=== PATIENT | female | born 1970 | race Caucasian/White ===

== ENCOUNTER 2016-10-25 15:31 | Emergency (ER) | payer BC, OTHER | END 2016-10-25 16:02 | disposition home or self-care (01) | DX: S61.230A Puncture wound without foreign body of right index finger without damage to nail, initial encounter (principal); W46.1XXA Contact with contaminated hypodermic needle, initial encounter; Y93.F9 Activity, other caregiving; Y92.239 Unspecified place in hospital as the place of occurrence of the external cause; Y99.0 Civilian activity done for income or pay; Z77.21 Contact with and (suspected) exposure to potentially hazardous body fluids ==

== ENCOUNTER 2016-12-19 08:49 | Outpatient (CLI) | payer OTHER ==
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
== END 2016-12-19 08:50 | disposition home or self-care (01) ==
LOC: DI 08:49
PROVIDERS: ATTEND Physician Assistant Medical
DX: M54.5 Low back pain (principal); Z98.1 Arthrodesis status
CPT/HCPCS: 72100

== ENCOUNTER 2017-05-08 21:43 | Emergency (ER) | payer OTHER ==
[2017-05-08] MEDS ORDERED: fentaNYL 100 MCG/2 ML VIAL IVP STA (21:54)
[2017-05-08] MEDS ORDERED: LIDOCAINE 2%-EPI 1:100000 20 ML MDV ONE (21:56)
[2017-05-08] MEDS ORDERED: fentaNYL 100 MCG/2 ML VIAL ONE (21:56)
[2017-05-08] MEDS ORDERED: AMOX/CLAV 875 MG/125 MG TABLET PO STA (22:39)
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
[2017-05-08] MEDS ORDERED: oxyCODONE/ACET 5/325 Prepack 4 PO STA (22:43)
[2017-05-08] MEDS ORDERED: BACITRACIN OINT TOP ONE (22:47)
[2017-05-08] MEDS ORDERED: AMOX/CLAV 875 MG/125 MG TABLET PO ONE (22:51)
[2017-05-08] MEDS ORDERED: oxyCODONE/ACET 5/325 Prepack 4 PO ONE (22:51)
[2017-05-08 22:54] VITALS: BP 126/77
== END 2017-05-08 23:00 | disposition home or self-care (01) ==
LOC: ED 21:43
DX: S71.112A Laceration without foreign body, left thigh, initial encounter (principal); W55.42XA Struck by pig, initial encounter; Y93.89 Activity, other specified; Y92.017 Garden or yard in single-family (private) house as the place of occurrence of the external cause; E03.9 Hypothyroidism, unspecified
CPT/HCPCS: 12034; 96374; 99283; A9270

== ENCOUNTER 2017-10-08 08:21 | Outpatient (CLI) | payer OTHER | END 2017-10-08 08:22 | disposition critical access hospital (66) | LOC: EMS 08:21 | PROVIDERS: ATTEND Surgery | DX: R11.0 Nausea (principal) | CPT/HCPCS: A0425; A0429 ==

== ENCOUNTER 2017-10-08 08:45 | Emergency (ER) | payer OTHER ==
--- NOTE | 2017-10-08 09:19 | ED Physician Documentation ---
PD HPI SYNCOPE - Stated complaint Stated Complaint: NEAR SYNCOPE - Chief complaint Chief Complaint: Neuro - History obtained from History obtained from: Patient - History of Present Illness Witnessed: Witnessed Timing - onset: How many hours ago, Today Associated symptoms: No: Incontinant of urine, Headache, Chest pain, Diaphoresis , Abdominal pain Contributing factors: Noxious stimulae (she had felt okay earlier in the day and yesterday. Says she noted a parculiar odor from breakroom at work. This made her nauseated and then lightheaded and nearly fainted. Sat down and then laid down, with feeling improved. Patient says the managers there called [facility] to have them evaluation for chemical leaks, etc.) Injury occurred: No: Fell, Head injury Similar symptoms before: Has not had sx before Recently seen: Not recently seen Review of Systems Constitutional: denies: Fever, Chills, Myalgias Nose: denies: Rhinorrhea / runny nose, Congestion Throat: denies: Sore throat Cardiac: denies: Chest pain / pressure, Palpitations Respiratory: denies: Dyspnea, Cough GI: reports: Nausea. 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 - Present Medications Home Medications: Ambulatory Orders Medication Instructions Recorded Confirmed Levothyroxine [Synthroid] 88 mcg PO QDAC 04/19/14 05/08/17 Amox/Clav 875/125 [Augmentin] 1 each PO Q12H #20 tablet 05/08/17 Hydrocodone/Acetaminophen 1 - 2 each PO Q6H PRN #14 tablet 05/08/17 [Hydrocodon-Acetaminophen 5-325] - Allergies Allergies/Adverse Reactions: Allergies Allergy/AdvReac Type Severity Reaction Status Date / Time acyclovir Allergy Mild Hives Verified 10/08/17 08:56 - Social History Does the pt smoke?: No Smoking Status: Never smoker Does the pt drink ETOH?: No Does the pt have substance abuse?: No - Immunizations Immunizations are current?: Yes PD ED PE NORMAL - Vitals Vital signs reviewed: Yes - General General: Alert and oriented X 3, No acute distress, Well developed/nourished - HEENT HEENT: Moist mucous membranes, Pharynx benign - Neck Neck: Supple, no meningeal sign, No adenopathy - Cardiac Cardiac: RRR, No murmur - Respiratory Respiratory: Clear bilaterally - Female Female : Deferred - Rectal Rectal: Deferred - Back Back: No CVA TTP - Derm Derm: Normal color Results - Vitals Vitals: Vital Signs - 24 hr 10/08/17 10/08/17 10/08/17 08:51 10:41 11:10 Temperature 36.2 C L Heart Rate 78 82 90 Respiratory 18 12 18 Rate Blood Pressure 119/77 116/88 H 117/88 H O2 Saturation 100 100 99 Oxygen O2 Source Room air - Labs Labs: Laboratory Tests 10/08/17 10/08/17 10/08/17 09:38 09:38 09:38 WBC 9.8 RBC 4.13 L Hgb 13.7 Hct 39.3 MCV 95.1 MCH 33.1 H MCHC 34.8 RDW 13.2 Plt Count 237 MPV 7.8 L Neut # 7.7 H Lymph # 1.3 L Bollinger # 0.7 Eos # 0.1 Baso # 0.1 Absolute Nucleated RBC 0.00 Nucleated RBC % 0.0 Sodium 136 Potassium 3.9 Chloride 105 Carbon Dioxide 23 Anion Gap 8.0 BUN 16 Creatinine 0.8 Estimated GFR (MDRD) 78 L Glucose 95 Calcium 8.8 Magnesium 2.1 Total Bilirubin 0.4 AST 19 ALT 16 Alkaline Phosphatase 47 Total Protein 7.1 Albumin 4.4 Globulin 2.7 Albumin/Globulin Ratio 1.6 Lipase 20 L TSH 0.98 Departure - Departure Disposition: 01 Home, Self Care Clinical Impression: Vasovagal syncope Condition: Stable Record reviewed to determine appropriate education?: Yes Instructions: ED Syncope Vasovagal Follow-Up: Mercedes Martino PA-C [Primary Care Provider] - Comments: This sounds likely to be a vasovagal fainting episode triggered by the unusual smell. It sounds peculiar to your system and it is good that they checked the building for noxious gases. Drink lots of fluids. Recheck if any further episodes were to happen. Forms: Activity restrictions Discharge Date/Time: 10/08/17 11:10
[2017-10-08] MEDS ORDERED: ONDANSETRON ODT 4 MG TABLET TL STA (09:30)
[2017-10-08 09:43] LABS: BASOPHILS # (AUTO) 0.1 10^3/uL (0.0-0.1); BASOPHILS % (AUTO) 0.5 %; EOSINOPHILS # (AUTO) 0.1 10^3/uL (0.0-0.7); HGB - HEMOGLOBIN 13.7 g/dL (12.0-16.0); LYMPHOCYTES # (AUTO) 1.3 10^3/uL (1.5-3.5); LYMPHOCYTES % (AUTO) 12.8 %; MEAN CORPUSCULAR HEMOGLOBIN 33.1 pg (27.0-31.0); MEAN CORPUSCULAR HGB CONC 34.8 g/dL (32.0-36.0); MEAN CORPUSCULAR VOLUME 95.1 fL (81.0-99.0); MEAN PLATELET VOLUME 7.8 fL (7.9-10.8); MONOCYTES # (AUTO) 0.7 10^3/uL (0.0-1.0); MONOCYTES % (AUTO) 6.8 %; NEUTROPHILS # (AUTO) 7.7 10^3/uL (1.5-6.6); NEUTROPHILS % (AUTO) 78.9 %; PLT - PLATELET COUNT 237 10^3/uL (130-450); RED BLOOD COUNT 4.13 10^6/uL (4.20-5.40); RED CELL DISTRIBUTION WIDTH 13.2 % (12.0-15.0); WHITE BLOOD COUNT 9.8 x10^3/uL (4.8-10.8)
[2017-10-08 09:56] LABS: ALBUMIN 4.4 g/dL (3.2-5.5); ALBUMIN/GLOBULIN RATIO 1.6 (1.0-2.2); BILIRUBIN,TOTAL 0.4 mg/dL (0.2-1.0); CALCIUM 8.8 mg/dL (8.5-10.3); CREATININE 0.8 mg/dL (0.4-1.0); MAGNESIUM 2.1 mg/dL (1.7-2.8); TOTAL PROTEIN 7.1 g/dL (6.7-8.2)
[2017-10-08 11:12] VITALS: BP 117/88
== END 2017-10-08 11:10 | disposition home or self-care (01) ==
LOC: EDUNIT# → ED 08:45
DX: R55 Syncope and collapse (principal); E03.9 Hypothyroidism, unspecified
CPT/HCPCS: 36415; 80053; 83690; 83735; 84443; 85025; 93005; 99283; Q0162

== ENCOUNTER 2018-01-01 08:00 | Outpatient (CLI) | payer OTHER ==
[2018-01-01 19:06] LABS: THYROID STIMULATING HORMONE 0.9 uIU/mL (0.34-5.60)
[2018-01-01 19:35] LABS: FOLLICLE STIMULATING HORMONE 72.64 mIU/mL
== END 2018-01-01 08:01 | disposition home or self-care (01) ==
LOC: LAB.WCP 08:00
PROVIDERS: ATTEND Family Medicine
DX: N95.1 Menopausal and female climacteric states (principal)
CPT/HCPCS: 36415; 83001; 84443

== ENCOUNTER 2018-01-30 16:04 | Outpatient (CLI) | payer OTHER ==
--- NOTE | 2018-01-31 16:28 | Mammography Report ---
Procedure Date: 01/30/2018 Accession Number: [id number] / [id number] Procedure: DWIGHT - Screening Mammo Dig Bilat CPT Code: FULL RESULT: EXAM: Screening Mammo Dig Bilat DATE: 01/30/2018 4:22 PM CLINICAL HISTORY: 47-year-old female with history of early menses presents for screening. TECHNIQUE: Bilateral CC and MLO views were obtained. COMPARISON: 05/11/2014, 01/11/2010. FINDINGS: The breasts demonstrate heterogeneously dense fibroglandular parenchyma bilaterally. The left breast contains coarse typically benign calcifications. No suspicious masses, clustered microcalcifications or architectural distortion is identified in the left breast. In the right breast approximately 3 cm from the nipple in the upper outer quadrant ice suspicious microcalcifications which are increasing when now more conspicuous due to decreasing breast density. Additional views are required. No suspicious masses or regions of architectural distortion are identified on the right. IMPRESSION: Incomplete examination RECOMMENDATION: Additional evaluation as above. BIRADS CATEGORY 0: Incomplete examination STANDARD QUALIFYING STATEMENTS: 1. This examination was reviewed with the aid of Computer-Aided Detection (CAD). 2. A negative or benign imaging report should not delay biopsy if clinically suspicious findings are present. Consider surgical consultation if warrented. More than 5% of cancers are not identified by imaging. 3. Dense breasts may obscure an underlying neoplasm.
== END 2018-01-30 16:05 | disposition home or self-care (01) ==
LOC: DI 16:04
PROVIDERS: ATTEND Family Medicine
DX: Z12.31 Encounter for screening mammogram for malignant neoplasm of breast (principal); R92.0 Mammographic microcalcification found on diagnostic imaging of breast
CPT/HCPCS: 77067

== ENCOUNTER 2018-08-12 13:51 | Outpatient (CLI) | payer BC, OTHER | END 2018-08-12 13:52 | disposition home or self-care (01) | LOC: SC 13:51 | PROVIDERS: ATTEND Internal Medicine Pulmonary Disease | DX: R06.83 Snoring (principal); E66.9 Obesity, unspecified; Z68.30 Body mass index [BMI] 30.0-30.9, adult | CPT/HCPCS: 99203; 99212 ==

== ENCOUNTER 2018-08-24 19:00 | Outpatient (CLI) | payer BC | END 2018-08-24 23:59 | disposition home or self-care (01) | LOC: SC 19:00 | PROVIDERS: ATTEND Internal Medicine Pulmonary Disease | DX: R06.83 Snoring (principal) | CPT/HCPCS: 95806 ==

== ENCOUNTER 2018-10-28 15:39 | Outpatient (CLI) | payer BC | END 2018-10-28 15:40 | disposition home or self-care (01) | LOC: SC 15:39 | PROVIDERS: ATTEND Internal Medicine Pulmonary Disease | DX: R06.83 Snoring (principal); E66.9 Obesity, unspecified | CPT/HCPCS: 99212 ==

== ENCOUNTER 2018-11-28 14:09 | Outpatient (CLI) | payer BC ==
[2018-11-28] MEDS ORDERED: GADOBUTROL 10 MMOL/10 ML VIAL ONE (14:59)
[2018-11-28] MEDS ORDERED: GADOBUTROL 10 MMOL/10 ML VIAL IVP ONE (15:43)
--- NOTE | 2018-11-29 13:52 | MRI Report ---
Reason: MIGRAINE HEADACHES Procedure Date: 11/28/2018 Accession Number: [id number] / [id number] Procedure: MRI - Brain W/WO CPT Code: FULL RESULT: EXAM: MRI BRAIN AND PITUITARY WITHOUT AND WITH CONTRAST. EXAM DATE: 11/28/2018 03:45 PM. CLINICAL HISTORY: 47-year-old female. MIGRAINE HEADACHES. COMPARISON: MRI BRAIN W TECHNIQUE: Multiplanar, multisequence T1-weighted and fluid-sensitive MR sequences of the brain and pituitary were performed. Other: None. IV Contrast: 8 ML Gadavist. FINDINGS: Brain Volume: Normal for age. Parenchyma: No masses, infarcts, or hemorrhage. Few scattered T2/FLAIR hyperintense subcortical white matter lesions within cerebral hemispheres bilaterally, new since the prior study. No abnormal enhancement, although the postcontrast images exclude the superior part of the brain parenchyma (for example series 1602 image 100).. No parenchymal foci of susceptibility artifact. Pituitary: 5.0 mm craniocaudally x 12.6 mm AP x 8.0 mm transversely. There is a 1.5 mm focus of relative hypoenhancement versus no enhancement in the posterior central gland (series 1501 image 7, series 1401 image 5). No hemorrhage, or enlargement. The superior margin is concave. The pituitary stalk is normal in thickness. The adjacent parasellar structures are within normal limits. Ventricles/Cisterns: No hydrocephalus. No abnormal extra-axial fluid collection or hemorrhage. Orbits: Symmetric and unremarkable. IAC: Symmetric and unremarkable. Vasculature: Normal signal flow void is seen in the major arterial structures at the skull base. The dural sinuses are patent and enhance normally. Sinuses: No acute sinus disease. Bones: No focal pathologic appearing marrow signal changes. Other: None. IMPRESSION: 1. No MRI evidence of acute intracranial abnormality. Specifically, no evidence of acute or subacute infarct, acute intracranial hemorrhage, mass, midline shift, or hydrocephalus. No abnormal parenchymal enhancement. 2. Few scattered T2/FLAIR hyperintense subcortical white matter lesions within cerebral hemispheres bilaterally, new since the prior study. These lesions are nonspecific, and can be seen with the entire gamut of white matter conditions, including migraine headaches and as sequela of chronic microangiopathy. 3. There is a subtle 1.5 mm focus of relative hypoenhancement versus no enhancement in the posterior central pituitary gland (series 1501 image 7, series 1401 image 5). This is nonspecific, may represent asymmetric enhancement of the gland versus a lesion such as a pituitary cystic lesion or a tiny microadenoma. RADIA
== END 2018-11-28 14:10 | disposition home or self-care (01) ==
LOC: DI 14:09
PROVIDERS: ATTEND Internal Medicine Endocrinology, Diabetes & Metabolism
DX: G43.909 Migraine, unspecified, not intractable, without status migrainosus (principal)
CPT/HCPCS: 70553; A9585

== ENCOUNTER 2018-12-10 07:22 | Outpatient (CLI) | payer BC ==
[2018-12-10 12:33] LABS: THYROID STIMULATING HORMONE 0.14 uIU/mL (0.34-5.60)
[2018-12-10 12:35] LABS: FREE T4 (FREE THYROXINE) 0.83 ng/dL (0.58-1.64)
[2018-12-10 12:40] LABS: PROLACTIN 12.95 ng/mL; TOTAL T3 1.37 ng/mL (0.87-1.78)
== END 2018-12-10 07:23 | disposition home or self-care (01) ==
LOC: LAB.F 07:22
PROVIDERS: ATTEND Internal Medicine Endocrinology, Diabetes & Metabolism
DX: D35.2 Benign neoplasm of pituitary gland (principal); E04.2 Nontoxic multinodular goiter; E03.9 Hypothyroidism, unspecified
CPT/HCPCS: 36415; 81599; 84146; 84439; 84443; 84480

== ENCOUNTER 2019-07-28 14:03 | Outpatient (CLI) | payer BC ==
[2019-07-28 17:17] LABS: BASOPHILS # (AUTO) 0.1 10^3/uL (0.0-0.1); BASOPHILS % (AUTO) 0.5 %; EOSINOPHILS # (AUTO) 0.2 10^3/uL (0.0-0.7); EOSINOPHILS % (AUTO) 1.9 %; HGB - HEMOGLOBIN 13.8 g/dL (12.0-16.0); LYMPHOCYTES # (AUTO) 2.7 10^3/uL (1.5-3.5); LYMPHOCYTES % (AUTO) 26.9 %; MEAN CORPUSCULAR HEMOGLOBIN 32.1 pg (27.0-31.0); MEAN CORPUSCULAR HGB CONC 33.7 g/dL (32.0-36.0); MEAN CORPUSCULAR VOLUME 95.1 fL (81.0-99.0); MEAN PLATELET VOLUME 10.3 fL (7.9-10.8); MONOCYTES # (AUTO) 0.8 10^3/uL (0.0-1.0); MONOCYTES % (AUTO) 7.9 %; NEUTROPHILS # (AUTO) 6.4 10^3/uL (1.5-6.6); NEUTROPHILS % (AUTO) 62.5 %; PLT - PLATELET COUNT 345 10^3/uL (130-450); RED CELL DISTRIBUTION WIDTH 12.9 % (12.0-15.0); WHITE BLOOD COUNT 10.2 x10^3/uL (4.8-10.8)
[2019-07-28 17:37] LABS: ALBUMIN 4.8 g/dL (3.2-5.5); ALBUMIN/GLOBULIN RATIO 1.5 (1.0-2.2); BILIRUBIN,TOTAL 0.7 mg/dL (0.2-1.0); CALCIUM 9.8 mg/dL (8.5-10.3); CREATININE 0.8 mg/dL (0.4-1.0); TOTAL PROTEIN 7.9 g/dL (6.7-8.2)
== END 2019-07-28 14:04 | disposition home or self-care (01) ==
LOC: LAB.S 14:03
PROVIDERS: ATTEND Physician Assistant Medical
DX: K52.9 Noninfective gastroenteritis and colitis, unspecified (principal); T50.911A Poisoning by multiple unspecified drugs, medicaments and biological substances, accidental (unintentional), initial encounter
CPT/HCPCS: 36415; 80053; 80307; 81599; 85025

== ENCOUNTER 2020-08-30 06:55 | Outpatient (CLI) | payer BC ==
[2020-08-30 15:28] LABS: THYROID STIMULATING HORMONE 3.54 uIU/mL (0.34-5.60)
[2020-08-30 15:30] LABS: FREE T4 (FREE THYROXINE) 0.83 ng/dL (0.58-1.64)
[2020-08-30 15:35] LABS: TOTAL T3 1.04 ng/mL (0.87-1.78)
== END 2020-08-30 06:56 | disposition home or self-care (01) ==
LOC: LAB.S 06:55
PROVIDERS: ATTEND Internal Medicine Endocrinology, Diabetes & Metabolism
DX: D35.2 Benign neoplasm of pituitary gland (principal); E66.9 Obesity, unspecified; E03.9 Hypothyroidism, unspecified
CPT/HCPCS: 36415; 81599; 82530; 83789; 84439; 84443; 84480

== ENCOUNTER 2020-11-12 13:57 | Outpatient (CLI) | payer BC ==
--- NOTE | 2020-11-12 14:13 | XRAY Report ---
PROCEDURE: Elbow 3 View RT INDICATIONS: RIGHT ELBOW PAIN/FALL TECHNIQUE: 3 views of the elbow were acquired. COMPARISON: None FINDINGS: Bones: No fractures or dislocations. No suspicious bony lesions. Soft tissues: No elbow joint effusion. No suspicious soft tissue calcifications. IMPRESSION: No evidence acute bony abnormality of the right elbow. Reviewed by: Ramses Posadas MD on 11/12/2020 2:12 PM PDT Approved by: Ramses Posadas MD on 11/12/2020 2:12 PM PDT Station ID: [id number]
== END 2020-11-12 23:59 | disposition home or self-care (01) ==
LOC: DI.S 13:57
PROVIDERS: ATTEND Physician Assistant
DX: M25.521 Pain in right elbow (principal)

== ENCOUNTER 2023-03-28 07:00 | Outpatient (CLI) | payer BC ==
--- NOTE | 2023-03-29 11:32 | Mammography Report ---
BILATERAL DIGITAL SCREENING MAMMOGRAM 3D/2D WITH EXAGGERATED CC: 03/28/2023 CLINICAL: Routine screening. Comparison is made to exams dated: 01/30/2018 mammogram and 05/11/2014 mammogram - [facility]. There are scattered areas of fibroglandular density in both breasts (category b / 25%-50% glandular t issue). There is a new oval asymmetry with a circumscribed margin in the right breast at 6 o'clock middle dep th. No other significant masses, calcifications, or other findings are seen in either breast. IMPRESSION: INCOMPLETE: NEEDS ADDITIONAL IMAGING EVALUATION The new oval asymmetry in the right breast is indeterminate. Additional views with possible ultrasou nd are recommended. Based on the Tyrer Cuzick model (a risk assessment model) the patients lifetime risk is 11.2% and he r 10 year risk is 2.6%. According to the ACR, ACS, and NCCN guidelines, an annual breast MRI exam mauro ng with mammogram is recommended if the patients lifetime risk is 20% or greater. This exam was interpreted at Station ID: [id number]. NOTE: For mammograms, a report in lay terms will be sent to the patient. Approximately 15% of breast malignancies will not be visualized mammographically. In the management of a palpable breast mass, a negative mammogram must not discourage biopsy of a clinically suspicious lesion. Electronically Signed By: Jorge Giles M.D. acr/:03/29/2023 08:14:33 ACR BI-RADS Category 0: Incomplete 3340F PARENCHYMAL PATTERN: (A) - The breast(s) demonstrate(s) scattered fibroglandular densities. BI-RADS CATEGORY: (0) - 0 Mammo and [place] [id number] Immediate follow-up LATERALITY: (R)
== END 2023-03-28 23:59 | disposition home or self-care (01) ==
LOC: DI.S 07:00
PROVIDERS: ATTEND Physician Assistant
DX: Z12.31 Encounter for screening mammogram for malignant neoplasm of breast (principal); R92.8 Other abnormal and inconclusive findings on diagnostic imaging of breast

== ENCOUNTER 2023-05-25 12:26 | Outpatient (CLI) | payer BC ==
--- NOTE | 2023-05-28 12:15 | Mammography Report ---
UNILATERAL RIGHT DIGITAL DIAGNOSTIC MAMMOGRAM 3D/2D: 05/25/2023 CLINICAL: Patient returns today to evaluate a focal asymmetry in the right breast. Comparison is made to exams dated: 03/28/2023 mammogram, 01/30/2018 mammogram, and 05/11/2014 mammogra m - [facility]. There are scattered areas of fibroglandular density in the right breast (category b / 25%-50% glandul ar tissue). There is a 0.7 cm oval mass with a circumscribed margin in the right breast at 7 o'clock middle depth . This is seen in additional views. No other significant masses or calcifications are seen in the breast. IMPRESSION: INCOMPLETE: NEEDS ADDITIONAL IMAGING EVALUATION The 0.7 cm oval mass in the right breast is indeterminate. An ultrasound is recommended. Based on the Tyrer Cuzick model (a risk assessment model) the patients lifetime risk is 8.3% and her 10 year risk is 1.9%. According to the ACR, ACS, and NCCN guidelines, an annual breast MRI exam ebony g with mammogram is recommended if the patients lifetime risk is 20% or greater. This exam was interpreted at Station ID: [id number]. NOTE: For mammograms, a report in lay terms will be sent to the patient. Approximately 15% of breast malignancies will not be visualized mammographically. In the management of a palpable breast mass, a negative mammogram must not discourage biopsy of a clinically suspicious lesion. Electronically Signed By: Andrey Finney M.D. lc/:05/25/2023 13:35:51 ACR BI-RADS Category 0: Incomplete 3340F PARENCHYMAL PATTERN: (A) - The breast(s) demonstrate(s) scattered fibroglandular densities. BI-RADS CATEGORY: (0) - 0 Ultrasound [id number] Immediate follow-up LATERALITY: (B)
--- NOTE | 2023-05-28 12:15 | Ultrasound Report ---
LIMITED ULTRASOUND OF RIGHT BREAST: 05/25/2023 CLINICAL: Patient returns today to evaluate a focal asymmetry in the right breast. Comparison is made to exams dated: 05/25/2023 mammogram, 03/28/2023 mammogram, 01/30/2018 mammogram, a nd 05/11/2014 mammogram - [facility]. Real-time ultrasound of the right breast 6 o'clock region was performed. Loving scale images of the re al-time examination were reviewed. There is a possible 0.8 cm x 0.4 cm x 0.8 cm oval micro cyst in the right breast at 8 o'clock middle depth. This correlates with mammography findings. IMPRESSION: PROBABLY BENIGN The possible 0.8 cm x 0.4 cm x 0.8 cm oval micro cyst in the right breast is probably benign. A follow-up ultrasound in 6 months is recommended to demonstrate stability. This exam was interpreted at Station ID: [id number]. Electronically Signed By: Andrey Finney M.D. lc/:05/25/2023 13:36:52 Ultrasound BI-RADS: 3 Probably benign BI-RADS CATEGORY: (3) - 3 Ultrasound [id number] 6 month follow-up LATERALITY: (B)
== END 2023-05-25 12:27 | disposition home or self-care (01) ==
LOC: DI 12:26
PROVIDERS: ATTEND Physician Assistant
DX: N63.13 Unspecified lump in the right breast, lower outer quadrant (principal); R92.321 Mammographic fibroglandular density, right breast

== ENCOUNTER 2023-08-13 07:00 | Outpatient (CLI) | payer BC ==
--- NOTE | 2023-08-13 18:14 | XRAY Report ---
PROCEDURE: Sacrum/Coccyx INDICATIONS: CONTUSION TO LOWER BACK AND PELVIS TECHNIQUE: 2 views of the sacrum and coccyx acquired. COMPARISON: X-ray lumbar spine 2017 FINDINGS: Bones: Mild diastases of the lower coccyx segments with cortical irregularity. Prior exams did not in clude it within the [id number].. No suspicious bony lesions. L4-5 posterior fusion. Hardware is intact without evidence of hardware fracture or periprosthetic lucency to suggest loosening. Degenera tive foraminal narrowing is present at L4-5, L5-S1. Soft tissues: Visualized bowel gas pattern is normal. No suspicious soft tissue densities. IMPRESSION: Diastases of distal coccyx segments with mild cortical irregularity. Fracture cannot be excluded. No priors are available for comparison and there is marked variability within the appearance of the cocc yx. Recommend correlation point tenderness. Reviewed by: Kinza Tony MD on 08/13/2023 6:13 PM PST Approved by: Kinza Tony MD on 08/13/2023 6:13 PM PST Station ID: [id number]
== END 2023-08-13 23:59 | disposition home or self-care (01) ==
LOC: DI.S 07:00
PROVIDERS: ATTEND Registered Nurse
DX: S30.0XXA Contusion of lower back and pelvis, initial encounter (principal); M43.8X8 Other specified deforming dorsopathies, sacral and sacrococcygeal region

== ENCOUNTER 2023-10-24 15:40 | Outpatient (CLI) | payer BC, OTHER ==
--- NOTE | 2023-10-25 11:13 | MRI Report ---
PROCEDURE: Pelvis WO INDICATIONS: CONTUSION OF SACROCOCCYGEAL REGION TECHNIQUE: Noncontrast coronal T1 spin echo, STIR, and T2 HASTE with and without fat saturation; axial T1 spin e cho, T2 HASTE, and STIR; sagittal T1 spin echo and T2 HASTE through the bony pelvis. Oblique coronal T1 spin echo and STIR through the sacrum. COMPARISON: Sacrum/coccyx radiographs 08/13/2023. FINDINGS: Image quality: Excellent. Bones: Focal transverse osseous edema and linear [id number] signal is seen within the 1st coccy geal vertebra that is suspicious for a nondisplaced fracture. Postsurgical changes are seen in the shin mbar spine at the L4-5 level with solid osseous fusion across the disc space. Osseous structures othe rwise appear to be intact. No suspicious osseous lesion. Sacroiliac joints are intact. Tendons: The gluteus medius and minimus tendons appear intact, without associated muscle atrophy. T he iliopsoas tendon appears intact, without adjacent bursal fluid collections. The origin of the ham string tendons are intact at the ischial tuberosities. Hip joints: Larger field of view images demonstrate no avascular necrosis of the femoral heads. Min imal degenerative changes. Soft tissues: The visualized musculature is normal in bulk. The proximal sciatic neurovascular bundle s appear normal adjacent to the hamstring tendons. No free pelvic fluid. Bladder wall thickness is normal. Genitourinary structures and bowel loops appear normal where visualized. IMPRESSION: 1.Suspected nondisplaced transverse fracture of the 1st coccygeal vertebra with mild focal osseous ed arielle. 2.Postsurgical changes at the lower lumbar spine. Reviewed by: Jose Gaitan MD on 10/25/2023 11:12 AM PDT Approved by: Jose Gaitan MD on 10/25/2023 11:12 AM PDT Station ID: [id number]
== END 2023-10-24 15:41 | disposition home or self-care (01) ==
LOC: DI 15:40
PROVIDERS: ATTEND Physical Medicine & Rehabilitation
DX: S30.0XXD Contusion of lower back and pelvis, subsequent encounter (principal); M53.3 Sacrococcygeal disorders, not elsewhere classified

== ENCOUNTER 2023-12-04 13:48 | Outpatient (CLI) | payer BC ==
--- NOTE | 2023-12-05 09:14 | Ultrasound Report ---
LIMITED ULTRASOUND OF RIGHT BREAST: 12/04/2023 CLINICAL: Patient returns for a 6 month follow up of the right breast. Comparison is made to exams dated: 05/25/2023 ultrasound, 05/25/2023 mammogram, 03/28/2023 mammogram - [facility], and 02/19/2018 mammogram - [facility]. Color flow and real-time ultrasound of the right breast 8 o'clock region were performed. Loving scale images of the real-time examination were reviewed. There is a possible 0.8 cm x 0.4 cm x 0.8 cm oval micro cyst in the right breast at 8 o'clock middle depth. This abnormality is not significantly changed. IMPRESSION: PROBABLY BENIGN The possible 0.8 cm x 0.4 cm x 0.8 cm oval micro cyst in the right breast is probably benign. A follow-up mammogram and an ultrasound in 6 months is recommended to demonstrate stability. This exam was interpreted at Station ID: [id number]. Electronically Signed By: Jose cloud/celio:12/04/2023 20:38:20 Ultrasound BI-RADS: 3 Probably benign BI-RADS CATEGORY: (3) - 3 Mammo and [place] [id number] 6 month follow-up LATERALITY: (B)
== END 2023-12-04 13:49 | disposition home or self-care (01) ==
LOC: DI 13:48
PROVIDERS: ATTEND Physician Assistant
DX: R92.8 Other abnormal and inconclusive findings on diagnostic imaging of breast (principal)